=== PATIENT | male | born 1990 | race Two or more races ===

== ENCOUNTER 2017-06-02 11:37 | Emergency (ER) | payer SELFPAY ==
[~2017-06-02] VITALS: Ht 172.7 cm; Wt 65.8 kg
[2017-06-02] VITALS (44 sets, daily range): BP systolic 124–175; BP diastolic 65–105
[2017-06-02] MEDS ORDERED: LORazepam Inj 2mg/ml 1ml IM ONE (11:45)
[2017-06-02] MEDS ORDERED: Haloperidol 5mg/ml Inj IM ONE ×2 (11:45→16:30)
[2017-06-02] MEDS ORDERED: DiphenhydrAMINE 50mg/ml Inj IM ONE (11:45)
[2017-06-02] MEDS ORDERED: UNOBMED (11:49)
[2017-06-02 12:33] LABS: HEMATOCRIT 46.9 % (42.0-52.0); HEMOGLOBIN 16.5 G/DL (14.2-18.0); MEAN CORPUSCULAR VOLUME 93 FL (80-99); PLATELET COUNT 312 K/UL (150-450); RED BLOOD COUNT 5.03 M/UL (4.70-6.10); RED CELL DISTRIBUTION WIDTH 10.6 % (11.6-14.8)
[2017-06-02 12:48] LABS: ANION GAP 12 mmol/L (5-15); BLOOD UREA NITROGEN 16 mg/dL (7-18); CARBON DIOXIDE 26 MMOL/L (21-32); CHLORIDE 100 MMOL/L (98-107); CREATININE 1.3 MG/DL (0.55-1.30); POTASSIUM 3.2 MMOL/L (3.5-5.1); SODIUM 138 MMOL/L (136-145)
[2017-06-02 12:52] LABS: ALANINE AMINOTRANSFERASE 31 U/L (12-78); ALBUMIN 4.6 G/DL (3.4-5.0); ALBUMIN/GLOBULIN RATIO 1.4 (1.0-2.7); ALKALINE PHOSPHATASE 70 U/L (46-116); ASPARTATE AMINO TRANSFERASE 31 U/L (15-37); BILIRUBIN,TOTAL 0.4 MG/DL (0.2-1.0); CREATINE KINASE 468 U/L (26-308)
--- NOTE | 2017-06-02 16:15 | Emergency Room Report ---
History of Present Illness General Chief Complaint: Behavioral Complaint Source: EMS (Jaron Trent M.D.) Present Illness HPI The patient is brought in by paramedics and police for agitated delirium. The paramedics were unable to control the patient even to get a blood glucose. He was from an alleyway. There is no evidence of any trauma. He is behaving in a paranoid manner. He will not state what he's ingested or if he has a prior medical history. Paramedics suspect drug ingestion. (Jaron Trent M.D.) Allergies: Coded Allergies: UNABLE TO ASSESS (Unverified , 06/02/17) Patient History Limited by: medical condition Past Medical History: see triage record Social History: Reports: drug use Social History Narrative Found in an alley Reviewed Nursing Documentation: PMH: Agreed, PSxH: Agreed (Jaron Trent M.D.) Nursing Documentation-PMH Past Medical History Deferred: Pt Cognitively Impaired (Jaron Trent M.D.) Review of Systems All Other Systems: limited (Jaron Trent M.D.) Physical Exam Vital Signs Date Time Temp Pulse Resp B/P (MAP) Pulse Ox O2 Delivery O2 Flow Rate FiO2 06/02/17 12:00 88 22 97 Room Air 06/02/17 12:04 97.9 169/105 Sp02 EP Interpretation: reviewed, normal General Appearance: mild distress, other - agitated Eyes: bilateral eye PERRL, bilateral eye Scleral Injection ENT: dry mucus membranes Neck: supple Respiratory: lungs clear, normal breath sounds Cardiovascular #1: tachycardia Gastrointestinal: non tender, decreased bowel sounds, scaphoid Musculoskeletal: normal range of motion Neurologic: alert, motor strength/tone normal, oriented - x1 - not answering questions Psychiatric: anxious - agitated, not answer questions Skin: normal color (Jaron Trent M.D.) Medical Decision Making Diagnostic Impression: Primary Impression: Transient organic psychosis Additional Impression: Amphetamine abuse ER Course Patient presents with agitated delirium. Patient needs to be sedated and then evaluated with labs and EKG. The patient also needs IV hydration. The patient was given Haldol, Benadryl and Ativan. Labs significant for leukocytosis, minimally elevated CK, + amphetamines, THC ( we gave ativan). The patient is sedated and IV is established. Vital signs are stable. Urine is sent off. He is unable to answer questions about suicidality at this time. He needs continued observation. Patient still combative, though less violent with sedation. Repeat Haldol given. The patient is signed out to Dr. Goff. Laboratory Tests Test 06/02/17 12:15 06/02/17 16:06 White Blood Count 14.0 K/UL (4.8-10.8) H Red Blood Count 5.03 M/UL (4.70-6.10) Hemoglobin 16.5 G/DL (14.2-18.0) Hematocrit 46.9 % (42.0-52.0) Mean Corpuscular Volume 93 FL (80-99) Mean Corpuscular Hemoglobin 32.8 PG (27.0-31.0) H Mean Corpuscular Hemoglobin Concent 35.2 G/DL (32.0-36.0) Red Cell Distribution Width 10.6 % (11.6-14.8) L Platelet Count 312 K/UL (150-450) Mean Platelet Volume 6.6 FL (6.5-10.1) Neutrophils (%) (Auto) % (45.0-75.0) Lymphocytes (%) (Auto) % (20.0-45.0) Monocytes (%) (Auto) % (1.0-10.0) Eosinophils (%) (Auto) % (0.0-3.0) Basophils (%) (Auto) % (0.0-2.0) Differential Total Cells Counted 100 Neutrophils % (Manual) 90 % (45-75) H Lymphocytes % (Manual) 5 % (20-45) L Monocytes % (Manual) 5 % (1-10) Eosinophils % (Manual) 0 % (0-3) Basophils % (Manual) 0 % (0-2) Band Neutrophils 0 % (0-8) Platelet Estimate Adequate Platelet Morphology Normal Sodium Level 138 MMOL/L (136-145) Potassium Level 3.2 MMOL/L (3.5-5.1) L Chloride Level 100 MMOL/L (98-107) Carbon Dioxide Level 26 MMOL/L (21-32) Anion Gap 12 mmol/L (5-15) Blood Urea Nitrogen 16 mg/dL (7-18) Creatinine 1.3 MG/DL (0.55-1.30) Estimate Glomerular Filtration Rate > 60 mL/min (>60) Glucose Level 110 MG/DL (74-106) H Calcium Level 10.0 MG/DL (8.5-10.1) Total Bilirubin 0.4 MG/DL (0.2-1.0) Aspartate Amino Transferase (AST) 31 U/L (15-37) Alanine Aminotransferase (ALT) 31 U/L (12-78) Alkaline Phosphatase 70 U/L (46-116) Total Creatine Kinase 468 U/L (26-308) H Total Protein 8.0 G/DL (6.4-8.2) Albumin 4.6 G/DL (3.4-5.0) Globulin 3.4 g/dL Albumin/Globulin Ratio 1.4 (1.0-2.7) Salicylates Level 3.7 ug/mL (2.8-20) Acetaminophen Level < 2 MCG/ML (10-30) L Serum Alcohol < 3 mg/dL Urine Color Pale yellow Urine Appearance Clear Urine pH 6 (4.5-8.0) Urine Specific [place] 1.025 (1.005-1.035) Urine Protein 2+ (NEGATIVE) H Urine Glucose (UA) Negative (NEGATIVE) Urine Ketones 2+ (NEGATIVE) H Urine Occult Blood 1+ (NEGATIVE) H Urine Nitrite Negative (NEGATIVE) Urine Bilirubin Negative (NEGATIVE) Urine Urobilinogen Normal MG/DL (0.0-1.0) Urine Leukocyte Esterase Negative (NEGATIVE) Urine RBC 2-4 /HPF (0 - 0) H Urine WBC 0-2 /HPF (0 - 0) Urine Squamous Epithelial Cells None /LPF (NONE/OCC) Urine Bacteria Few /HPF (NONE) Urine Opiates Screen Negative (NEGATIVE) Urine Barbiturates Screen Negative (NEGATIVE) Phencyclidine (PCP) Screen Negative (NEGATIVE) Urine Amphetamines Screen Positive (NEGATIVE) H Urine Benzodiazepines Screen Positive (NEGATIVE) H Urine Cocaine Screen Negative (NEGATIVE) Urine Marijuana (THC) Screen Positive (NEGATIVE) H (Jaron Trent M.D.) ER Course Polysubstance abuse, multiple drugs + Endorsed to me for re-eval by Dr Goff As of 2am, patient awake and oriented x3 Denies SI, HI Feels better Wants to go home ER course: Patient has remained stable during ED stay. Disposition: Patient is to be discharged to home. Patient is instructed to follow up with their primary care doctor within 5 days. Strict return precautions discussed with patient such as fever, chills, worsening/severe pain, nausea, vomiting, which may indicate severe illness. Patient verbalizes understanding and agrees with plan. Please note that this Emergency Department Report was dictated using [employer] expert technology software, occasionally this can lead to erroneous entry secondary to interpretation by the dictation equipment (ROBBY CORONA M.D.) EKG Diagnostic Results Rate: normal Rhythm: NSR ST Segments: no acute changes (Jaron Trent M.D.) Rhythm Strip Diag. Results EP Interpretation: yes Rhythm: NSR, no PVC's, no ectopy (Jaron Trent M.D.) Last Vital Signs Date Time Temp Pulse Resp B/P (MAP) Pulse Ox O2 Delivery O2 Flow Rate FiO2 06/03/17 01:58 98.4 63 16 127/78 100 Room Air Status: improved (Jaron Trent M.D.) Status: improved (ROBBY CORONA M.D.) Disposition: HOME, SELF-CARE Condition: Improved Referrals: NOT CHOSEN IPA/,REFERRING (PCP) Jaron Trent M.D. Jun 02, 2017 16:15 ROBBY CORONA M.D. Jun 03, 2017 02:08
[2017-06-02 16:33] LABS: APPEARANCE,URINE CLEAR; BILIRUBIN, URINE NEGATIVE (NEGATIVE); COLOR,URINE PALE YELLOW; GLUCOSE, URINE (UA) NEGATIVE (NEGATIVE); KETONES,URINE 2+ (NEGATIVE); LEUKOCYTE ESTERASE ,URINE NEGATIVE (NEGATIVE); NITRITE,URINE NEGATIVE (NEGATIVE); PH,URINE 6 (4.5-8.0); PROTEIN,URINE 2+ (NEGATIVE); UROBILINOGEN,URINE NORMAL MG/DL (0.0-1.0)
[2017-06-03 01:00] VITALS: BP 127/78
[2017-06-03 01:58] VITALS: BP 127/78
--- NOTE | 2017-06-04 17:37 | Cardiology Report ---
APPROVED REPORT EKG Measurement Heart [id number] Normal sinus rhythm Normal ECG
== END 2017-06-03 01:58 | disposition home or self-care (01) ==
LOC: EDBD 11:37 → EMR 12:50
DX: F23 Brief psychotic disorder (principal); F15.10 Other stimulant abuse, uncomplicated
CPT/HCPCS: 36415; 80053; 80307; 81003; 82550; 85007; 85025; 93005; 96361; 96374; 96375; 99284; G0480; J1200; J1630; 80329